=== PATIENT | female | born 1990 | race Caucasian/White ===

== ENCOUNTER 2021-11-18 08:45 | Emergency (ER) | payer BC ==
[~2021-11-18] VITALS: Ht 167.6 cm; Wt 49.9 kg
--- NOTE | 2021-11-18 08:45 | NUR ---
BIBA ALS TO ER BED 3 Addendum: 11/18/21 at 0855 by [facility] DENICEA BLS TO ER BED 2
--- NOTE | 2021-11-18 08:46 | NUR ---
Pt BIBA BLS coming from home ambulatory with steady gait. Skin intact. A&Ox4. Pt c/o having blurred vision and nausea waking up this morning abruptly. Upon arrival pt states she does not have any more nausea but still has slight blurred vision. Denies vomiting, chest pain, and sob. VSS. Hx : Anxiety and GERD. Allergic to Penicillin and Sulfa LMP October 15, 2021
[2021-11-18 08:50] VITALS: BP 117/73
--- NOTE | 2021-11-18 09:29 | NUR ---
ER physician Dr. Mtz at bedside assessing pt.
[2021-11-18] MEDS ORDERED: ATA25 PO (09:57)
--- NOTE | 2021-11-18 10:05 | NUR ---
Patient discharged with v/s stable. Written and verbal after care instructions given and explained. Patient verbalized understanding. Ambulatory with steady gait. All questions addressed prior to discharge. Advised to follow up with PMD.
[2021-11-18 10:06] VITALS: BP 107/65
== END 2021-11-18 10:02 | disposition home or self-care (01) ==
LOC: MED 08:45
DX: F41.9 Anxiety disorder, unspecified (principal); R42 Dizziness and giddiness; R00.2 Palpitations; K21.9 Gastro-esophageal reflux disease without esophagitis; Z88.0 Allergy status to penicillin; Z88.2 Allergy status to sulfonamides
CPT/HCPCS: 81002; 81025; 99283

== ENCOUNTER 2022-01-19 18:43 | Emergency (ER) | payer BC ==
[~2022-01-19] VITALS: Ht 167.6 cm; Wt 49.0 kg
[~2022-01-19 18:43] MED LIST: ATA25 PO
[2022-01-19 18:51] VITALS: BP 113/64
--- NOTE | 2022-01-19 18:55 | NUR ---
31 y/o female, c/o abd pain, chronic for 13 years. pt states it has flared up and gotten worse over the past 2 years and has been taking antacids since then. states today she hasnt been able to eat. has appointment with pcp on . skin is pink/warm/dry. a&o x4 with even and steady gait. lungs clear bl, heart rate even and regular. pt denies dysuria, hematuria, urinary frequency or retention, or anyone sick in the household with the same symptoms. pmh: denies allergy: sulfa, penicillin med: omeprazole, tums (no relief)
[2022-01-19] MEDS: KETOROLAC 30 MG/ML VIAL IM ONE (19:40)
[2022-01-19 20:27] LABS: BASOPHILS # (AUTO) 0.1 K/uL (0.00-0.22); BASOPHILS % (AUTO) 1.2 % (0.0-2.0); EOSINOPHILS # (AUTO) 0.2 K/uL (0-0.4); EOSINOPHILS % (AUTO) 2.6 % (0.0-4.0); HEMATOCRIT 37.5 % (36-48); HEMOGLOBIN 12.8 g/dL (12.0-16.0); MEAN CORPUSCULAR HEMOGLOBIN 31 pg (27-31); MEAN CORPUSCULAR HGB CONC 34 g/dL (33-37); MEAN CORPUSCULAR VOLUME 91.1 fL (80-94); MONOCYTES # (AUTO) 0.6 K/uL (0.8-1.0); MONOCYTES % (AUTO) 6.6 % (1.7-9.3); NEUTROPHILS # (AUTO) 5.9 K/uL (1.8-7.7); NEUTROPHILS % (AUTO) 66.6 % (42.2-75.2); PLATELET COUNT (AUTO) 291 K/uL (140-450); RED BLOOD CELL COUNT(AUTO) 4.12 MIL/uL (4.20-5.40); RED CELL DISTRIBUTION WIDTH 13.1 % (11.6-13.7); WHITE BLOOD COUNT (AUTO) 8.8 K/uL (4.8-10.8)
[2022-01-19 20:59] LABS: ALBUMIN 4.2 g/dL (3.4-5.0); ANION GAP 11.5 (8-16); CARBON DIOXIDE 28.3 mmol/L (21-32); CREATININE 0.7 mg/dL (0.6-1.3); POTASSIUM 3.8 mmol/L (3.5-5.1); TOTAL BILIRUBIN 0.2 mg/dL (0.0-1.0)
[2022-01-19] MEDS ORDERED: FAMO-90 PO (21:24)
[2022-01-19] MEDS ORDERED: ONDA-188 PO (21:24)
[2022-01-19] MEDS ORDERED: MAG355OR2 PO (21:24)
[2022-01-19] MEDS ORDERED: ONDANSETRON 4 MG ODT ONE (21:43)
[2022-01-19] MEDS ORDERED: ALUMINUM HYD/MAG/SIMETHICONE 30 ML UDC ONE (21:44)
[2022-01-19] MEDS ORDERED: KETOROLAC 30 MG/ML VIAL ONE (21:44)
[2022-01-19] MEDS ORDERED: DICYCLOMINE HCL LIQUID 10 MG/5 ML UDC ONE (21:48)
[2022-01-19] MEDS: ONDANSETRON 4 MG ODT PO ONE (21:49)
[2022-01-19] MEDS: DICYCLOMINE HCL LIQUID 20 MG, ALUMINUM HYD/MAG/SIMETHICONE 30 ML, LIDOCAINE VISCOUS 2% ... PO ONE ×3 (21:50)
[2022-01-19 21:52] VITALS: BP 113/64
--- NOTE | 2022-01-19 21:52 | NUR ---
Patient discharged with v/s stable. Written and verbal after care instructions given and explained. Patient alert, oriented and verbalized understanding of instructions. Ambulatory with steady gait. All questions addressed prior to discharge. ID band removed. Patient advised to follow up with PMD. Rx of zofran, famotidine, mag hydrox (sent) given. Patient educated on indication of medication including possible reaction and side effects. Opportunity to ask questions provided and answered.
== END 2022-01-19 22:00 | disposition home or self-care (01) ==
LOC: MED 18:43
DX: K29.70 Gastritis, unspecified, without bleeding (principal); K21.9 Gastro-esophageal reflux disease without esophagitis; Z88.0 Allergy status to penicillin; Z88.2 Allergy status to sulfonamides
CPT/HCPCS: 36415; 71045; 80053; 81002; 81025; 83690; 85025; 99284; J1885; Q0162

== ENCOUNTER 2022-10-29 20:28 | Emergency (ER) | payer BC ==
[~2022-10-29] VITALS: Ht 167.6 cm; Wt 49.9 kg
[~2022-10-29 20:28] MED LIST changes: +FAMO-90 PO; +MAG355OR2 PO; +ONDA-188 PO
[2022-10-29 21:06] VITALS: BP 117/72
--- NOTE | 2022-10-29 22:30 | NUR ---
Pt ambulatory from home with c/o headache associated with N/V since am. Pt states she went on a 13 hour hike yesterday and had little to no water. Has been unable to keep any PO down. Denies fever, chills, diarrhea. PMH: Anxiety
--- NOTE | 2022-10-29 23:10 | NUR ---
MD Jonas at bedside examining pt.
[2022-10-29] MEDS ORDERED: ONDANSETRON 4 MG/2 ML VIAL IVP ONE (23:15)
[2022-10-29] MEDS ORDERED: NACL 0.9% 1,000 ML IV ONE (23:15)
[2022-10-29] MEDS ORDERED: KETOROLAC 30 MG/ML VIAL IVP ONE (23:15)
[2022-10-29 23:38] LABS: BASOPHILS % (AUTO) 0.5 % (0.0-2.0); EOSINOPHILS # (AUTO) 0.1 K/uL (0-0.4); EOSINOPHILS % (AUTO) 0.6 % (0.0-4.0); HEMATOCRIT 39.9 % (36-48); HEMOGLOBIN 13.5 g/dL (12.0-16.0); LYMPHOCYTES # (AUTO) 1.4 K/uL (2.5-16.5); LYMPHOCYTES % (AUTO) 16.8 % (20.5-51.1); MEAN CORPUSCULAR HEMOGLOBIN 30 pg (27-31); MEAN CORPUSCULAR HGB CONC 34 g/dL (33-37); MEAN CORPUSCULAR VOLUME 89.6 fL (80-94); MONOCYTES # (AUTO) 0.4 K/uL (0.8-1.0); MONOCYTES % (AUTO) 4.2 % (1.7-9.3); NEUTROPHILS # (AUTO) 6.7 K/uL (1.8-7.7); NEUTROPHILS % (AUTO) 77.9 % (42.2-75.2); PLATELET COUNT (AUTO) 320 K/uL (140-450); RED BLOOD CELL COUNT(AUTO) 4.45 MIL/uL (4.20-5.40); RED CELL DISTRIBUTION WIDTH 13.2 % (11.6-13.7); WHITE BLOOD COUNT (AUTO) 8.6 K/uL (4.8-10.8)
--- NOTE | 2022-10-29 23:50 | NUR ---
Pt medicated as ordered; tolerated well.
[2022-10-30 00:51] LABS: ANION GAP 11.8 (8-16); CARBON DIOXIDE 27.3 mmol/L (21-32); POTASSIUM 4.1 mmol/L (3.5-5.1)
[2022-10-30 00:52] LABS: CREATININE 0.6 mg/dL (0.6-1.3); TOTAL BILIRUBIN 0.7 mg/dL (0.0-1.0)
[2022-10-30 00:53] LABS: ALBUMIN 4.4 g/dL (3.4-5.0)
[2022-10-30] MEDS ORDERED: NACL 0.9% 1,000 ML IV ONE (01:15)
[2022-10-30] MEDS ORDERED: DOXY-487 PO (01:59)
[2022-10-30 02:03] VITALS: BP 101/63
--- NOTE | 2022-10-30 02:03 | NUR ---
Patient discharged with v/s stable. Written and verbal after care instructions given and explained. Patient alert, oriented and verbalized understanding of instructions. Ambulatory with steady gait. All questions addressed prior to discharge. ID band removed. Patient advised to follow up with PMD. Rx of Doxycycline sent to preferred pharmacy. Patient educated on indication of medication including possible reaction and side effects. Opportunity to ask questions provided and answered.
== END 2022-10-30 02:03 | disposition home or self-care (01) ==
LOC: MED 20:28
DX: E86.0 Dehydration (principal); R21 Rash and other nonspecific skin eruption; R51.9 Headache, unspecified; R11.2 Nausea with vomiting, unspecified; Z88.0 Allergy status to penicillin; Z88.2 Allergy status to sulfonamides; Z79.899 Other long term (current) drug therapy
CPT/HCPCS: 36415; 80053; 83605; 85025; 87040; 96361; 96374; 96375; 99284; J1885; J2405; J7030